=== PATIENT | male | born 1995 | race Hispanic/Latino ===

== ENCOUNTER 2017-04-15 12:07 | Emergency (ER) | payer BC ==
[~2017-04-15] VITALS: Ht 167.6 cm; Wt 82.6 kg
[2017-04-15] MEDS ORDERED: BACTRIM DS TAB1 EACH PO (14:31)
== END 2017-04-15 14:37 | disposition home or self-care (01) ==
LOC: FSED 12:07
DX: S01.81XA Laceration without foreign body of other part of head, initial encounter (principal); W10.8XXA Fall (on) (from) other stairs and steps, initial encounter; Y93.89 Activity, other specified; Y92.008 Other place in unspecified non-institutional (private) residence as the place of occurrence of the external cause

== ENCOUNTER 2017-04-22 08:42 | Emergency (ER) | payer BC ==
[~2017-04-22] VITALS: Ht 167.6 cm; Wt 45.4 kg
[~2017-04-22 08:42] MED LIST: BACTRIM DS TAB1 EACH PO
[2017-04-22] MEDS ORDERED: MAGNESIUM/ALUMINUM/SIMETHICONE 30 ML UDC PO ONE (09:15)
[2017-04-22] MEDS ORDERED: BELLADONNA ALK/PHENOBARBITAL 5 ML UDC PO ONE (09:15)
[2017-04-22] MEDS ORDERED: LIDOCAINE VISC 2% SOLN 15 ML UDC PO ONE (09:15)
[2017-04-22 11:31] VITALS: BP 135/76
== END 2017-04-22 09:45 | disposition home or self-care (01) ==
LOC: FSED 08:42
DX: Z48.02 Encounter for removal of sutures (principal); R10.13 Epigastric pain
CPT/HCPCS: 99283